=== PATIENT | female | born 1960 | race Caucasian/White ===

== ENCOUNTER 2017-01-04 10:45 | Outpatient (CLI) | payer MEDICARE, MEDICAID | END 2017-01-04 10:46 | disposition home or self-care (01) | DX: Z12.31 Encounter for screening mammogram for malignant neoplasm of breast (principal); R92.2 Inconclusive mammogram ==

== ENCOUNTER 2017-01-11 12:39 | Outpatient (CLI) | payer MEDICARE, MEDICAID | END 2017-01-11 12:40 | disposition home or self-care (01) | DX: N63 Unspecified lump in breast (principal) ==

== ENCOUNTER 2017-03-31 16:29 | Outpatient (CLI) | payer MEDICARE | END 2017-03-31 16:30 | disposition EMS.NT | LOC: EMS 16:29 | PROVIDERS: ATTEND Surgery | DX: S09.90XA Unspecified injury of head, initial encounter (principal); W18.39XA Other fall on same level, initial encounter; Y93.K1 Activity, walking an animal ==

== ENCOUNTER 2017-03-31 17:34 | Emergency (ER) | payer MEDICAID, MEDICARE ==
[2017-03-31] MEDS ORDERED: oxyCOD/ACETAMIN 5 MG/325 MG TABLET PO STA (21:28)
[2017-03-31] MEDS ORDERED: IBUPROFEN 800 MG TABLET PO STA (21:28)
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
[2017-03-31] MEDS ORDERED: IBUPROFEN 800 MG TABLET PO ONE (22:10)
[2017-03-31] MEDS ORDERED: oxyCOD/ACETAMIN 5 MG/325 MG TABLET PO ONE (22:10)
--- NOTE | 2017-03-31 22:21 | XRAY Preliminary Report ---
Exam: XR Chest 2 View PA/LAT IMPRESSION: No acute abnormalities identified. Moderate hiatal hernia. [facility] SITE ID: [id number]
--- NOTE | 2017-03-31 22:23 | XRAY Report ---
EXAM: CHEST RADIOGRAPHY EXAM DATE: 03/31/2017 10:07 PM. CLINICAL HISTORY: Fall. Left costal margin contusion. COMPARISON: None. TECHNIQUE: 2 views. FINDINGS: Lungs/Pleura: No focal opacities evident. No pleural effusion. No pneumothorax. Normal volumes. Mediastinum: Normal heart size. Moderate hiatal hernia. Other: No fractures identified. IMPRESSION: No acute abnormalities identified. Moderate hiatal hernia. [facility] Referring Provider Line: [phone] SITE ID: [id number]
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
--- NOTE | 2017-03-31 22:32 | CT Report ---
EXAM: CT HEAD EXAM DATE: 03/31/2017 10:10 PM. CLINICAL HISTORY: Left cephalohematoma COMPARISON: None. TECHNIQUE: Multiaxial CT images were obtained from the foramen magnum to the vertex. IV contrast: Non e. Reformats: Coronal. In accordance with CT protocol optimization, one or more of the following dose reduction techniques w ere utilized for this exam: automated exposure control, adjustment of mA and/or KV based on patient s ize, or use of iterative reconstructive technique. FINDINGS: Parenchyma: Encephalomalacia involves the left temporal pole. Extraaxial Spaces: Normal for age. No subdural or epidural collections identified. Ventricles: Prominent out of proportion to overlying sulci. Vasquez ratio is 0.42. Sinuses: Imaged paranasal sinuses, orbits, and mastoids show no significant abnormality. Bones: Left sided craniotomy. No fracture is identified. Other: Left frontal scalp hematoma IMPRESSION: Old injury left temporal pole. Pattern suggests remote trauma. Ventriculomegaly without an obstructing lesion demonstrated. Correlate with signs and symptoms of nor mal pressure hydrocephalus. Remote left convexity craniotomy. [facility] Referring Provider Line: [phone] SITE ID: [id number]
[2017-03-31] MEDS ORDERED: TETANUS/DIPHTHERIA/PERTUSSIS 0.5 ML SYRINGE IM ONE ×2 (23:31)
[2017-03-31 23:45] VITALS: BP 116/68
== END 2017-03-31 23:40 | disposition home or self-care (01) ==
LOC: ED 17:34
DX: S06.9X1A Unspecified intracranial injury with loss of consciousness of 30 minutes or less, initial encounter (principal); S00.03XA Contusion of scalp, initial encounter; S20.212A Contusion of left front wall of thorax, initial encounter; S50.812A Abrasion of left forearm, initial encounter; S50.811A Abrasion of right forearm, initial encounter; W01.198A Fall on same level from slipping, tripping and stumbling with subsequent striking against other object, initial encounter; Y93.K1 Activity, walking an animal; Z87.820 Personal history of traumatic brain injury; M19.90 Unspecified osteoarthritis, unspecified site
CPT/HCPCS: 70450; 71020; 90471; 90715; 99283; A9270

== ENCOUNTER 2017-10-31 18:54 | Outpatient (CLI) | payer MEDICAID, MEDICARE | END 2017-10-31 18:55 | disposition critical access hospital (66) | LOC: EMS 18:54 | PROVIDERS: ATTEND Surgery | DX: R10.9 Unspecified abdominal pain (principal); R11.2 Nausea with vomiting, unspecified | CPT/HCPCS: A0425; A0427 ==

== ENCOUNTER 2017-10-31 19:31 | Emergency (ER) | payer MEDICAID, MEDICARE ==
[2017-10-31 19:59] LABS: BASOPHILS # (AUTO) 0.1 10^3/uL (0.0-0.1); BASOPHILS % (AUTO) 0.7 %; EOSINOPHILS # (AUTO) 0.1 10^3/uL (0.0-0.7); EOSINOPHILS % (AUTO) 1.1 %; HGB - HEMOGLOBIN 13.9 g/dL (12.0-16.0); LYMPHOCYTES % (AUTO) 20.1 %; MEAN CORPUSCULAR HEMOGLOBIN 29.8 pg (27.0-31.0); MEAN CORPUSCULAR HGB CONC 32.4 g/dL (32.0-36.0); MEAN PLATELET VOLUME 7.1 fL (7.9-10.8); MONOCYTES # (AUTO) 0.4 10^3/uL (0.0-1.0); MONOCYTES % (AUTO) 4.3 %; NEUTROPHILS # (AUTO) 7.5 10^3/uL (1.5-6.6); NEUTROPHILS % (AUTO) 73.8 %; PLT - PLATELET COUNT 310 10^3/uL (130-450); RED BLOOD COUNT 4.67 10^6/uL (4.20-5.40); RED CELL DISTRIBUTION WIDTH 13.6 % (12.0-15.0); WHITE BLOOD COUNT 10.2 x10^3/uL (4.8-10.8)
[2017-10-31 20:18] LABS: ALBUMIN 4.8 g/dL (3.2-5.5); ALBUMIN/GLOBULIN RATIO 1.7 (1.0-2.2); BILIRUBIN,TOTAL 0.4 mg/dL (0.2-1.0); CALCIUM 9.3 mg/dL (8.5-10.3); CREATININE 0.9 mg/dL (0.4-1.0); TOTAL PROTEIN 7.6 g/dL (6.7-8.2)
--- NOTE | 2017-10-31 20:42 | ED Physician Documentation ---
PD HPI CHEST PAIN - Stated complaint Stated Complaint: CP, ABD PAIN, VOMITING - Chief complaint Chief Complaint: Cardiac - History obtained from History obtained from: Patient, EMS - History of Present Illness Timing - onset: Enter time (1800), Today Timing - onset during: Rest Timing - details: Abrupt onset, Now resolved Quality: Pressure, Tightness Location: Substernal Radiation: No: Jaw, Neck, Back, Abdominal, Left upper extremity, Right upper extremity Improved by: Rest Associated symptoms: Diaphoresis Similar symptoms before: Has not had sx before Recently seen: Not recently seen - Additional information Additional information: 57-year-old female with a history of traumatic brain injury has poor memory and is unable to assist with a history to any extent. She is able to describe that she had some pain in her chest anteriorly and this eventually resolved and she had some pain in her abdomen and now she is pain-free. Here in the emergency department she denies any specific symptoms. She states she thinks this happened sometime after dinner. She is expecting her sister to arrive here to provide more details of history. PD PAST MEDICAL HISTORY - Past Medical History Cardiovascular: None Respiratory: None Neuro: Head injury Endocrine/Autoimmune: None GI: Diverticulitis : None HEENT: None Psych: Depression, Anxiety Musculoskeletal: Osteoarthritis Derm: None - Past Surgical History Past Surgical History: Yes Neuro: Craniotomy HEENT: Tonsil/Adenoidectomy - Present Medications Home Medications: Ambulatory Orders Medication Instructions Recorded Confirmed Amitriptyline [Elavil] 25 mg PO QDAC 10/17/13 03/31/17 Multivit-Min/FA/Lycopene/Lut 1 each PO QDAC 10/17/13 03/31/17 [Centrum Silver Tablet] Ibuprofen 600 mg PO TID PRN #14 tablet 03/31/17 buPROPion [Wellbutrin Xl] 150 mg PO QDAC 03/31/17 03/31/17 oxyCODONE/ACET 5/325 [Percocet 5 1 each PO Q4-6H PRN #16 tablet 03/31/17 mg/325 mg] - Allergies Allergies/Adverse Reactions: Allergies Allergy/AdvReac Type Severity Reaction Status Date / Time phenytoin sodium * Allergy Severe fever Verified 10/31/17 19:37 [From Dilantin] phenytoin sodium extended * Allergy Severe fever Verified 10/31/17 19:37 [From Dilantin] - Social History Does the pt smoke?: No Smoking Status: Never smoker Does the pt drink ETOH?: Yes - Immunizations Immunizations are current?: No Immunizations: TDAP >10years/unknown - POLST Patient has POLST: No PD ED PE NORMAL - General General: No acute distress, Well developed/nourished - HEENT HEENT: Atraumatic, PERRL, EOMI, Ears normal, Other (dry mucous membranes) - Neck Neck: Supple, no meningeal sign, No bony TTP - Cardiac Cardiac: RRR, No murmur - Respiratory Respiratory: No respiratory distress, Other (rhonchi in the right base) - Abdomen Abdomen: Soft, Non tender - Back Back: No CVA TTP, No spinal TTP - Derm Derm: Normal color, Warm and dry, No rash - Extremities Extremities: No deformity, No edema - Neuro Neuro: flight director 2-12 intact, No motor deficit, No sensory deficit, Normal speech Eye Opening: Spontaneous Motor: Obeys Commands Verbal: Oriented GCS Score: 15 - Psych Psych: Normal mood, Normal affect Results - Vitals Vitals: Vital Signs - 24 hr 10/31/17 10/31/17 10/31/17 19:32 20:14 20:30 Temperature 36.1 C L Heart Rate 90 83 86 Respiratory 20 16 16 Rate Blood Pressure 127/91 H 119/90 H 123/88 H O2 Saturation 95 93 98 10/31/17 10/31/17 10/31/17 21:20 21:30 22:00 Temperature Heart Rate 79 80 80 Respiratory 16 16 Rate Blood Pressure 106/76 144/88 H 129/95 H O2 Saturation 98 99 10/31/17 10/31/17 22:30 23:43 Temperature Heart Rate 83 89 Respiratory 16 16 Rate Blood Pressure 134/93 H 134/98 H O2 Saturation 97 95 Oxygen O2 Source Room air - EKG (time done) 1938 Rate: Rate (enter#) (85) Rhythm: NSR Ischemia: Normal ST segments Compare to prior EKG: Old EKG unavailable Computer interpretation: Agree with computer - Labs Labs: Laboratory Tests 10/31/17 10/31/17 10/31/17 19:52 19:52 19:52 WBC 10.2 RBC 4.67 Hgb 13.9 Hct 42.9 MCV 92.0 MCH 29.8 MCHC 32.4 RDW 13.6 Plt Count 310 MPV 7.1 L Neut # 7.5 H Lymph # 2.0 [place] # 0.4 Eos # 0.1 Baso # 0.1 Absolute Nucleated RBC 0.00 Nucleated RBC % 0.0 Sodium 139 Potassium 4.0 Chloride 104 Carbon Dioxide 26 Anion Gap 9.0 BUN 19 Creatinine 0.9 Estimated GFR (MDRD) 64 L Glucose 155 H Calcium 9.3 Total Bilirubin 0.4 AST 20 ALT 24 Alkaline Phosphatase 73 Troponin I < 0.04 Total Protein 7.6 Albumin 4.8 Globulin 2.8 Albumin/Globulin Ratio 1.7 Lipase 23 - Rads (name of study) 2 view chest Radiology: Prelim report reviewed (Impression: Large hiatal hernia. No acute airspace process.), EMP read indepedently, See rad report Procedures - Bedside sono Bedside sono by EMP: With use of bedside ultrasound the gallbladder is imaged it is sonographically nontender and without obvious stone. PD MEDICAL DECISION MAKING - ED course Complexity details: reviewed old records, reviewed results, re-evaluated patient , considered differential, d/w patient, d/w family ED course: 57 -year-old female with prior traumatic brain injury is not able to give adequate history and the mother is contacted by telephone and gives a history of similar episodes previously over the years which are not as severe. She describes the episode is air in her esophagus. The patient does have a large hiatal hernia I suspect that she has had some reflux with the the hiatal hernia as this occurred after the reading some enchiladas. The patient is now asymptomatic and no other findings specifically on workup and she is discharged to home in a taxi. Departure - Departure Disposition: 01 Home, Self Care Clinical Impression: Hiatal hernia Condition: Stable Instructions: Hiatal Hernia Follow-Up: Nasir Springer MD [Provider Admit Priv/Credential] - Discharge Date/Time: 10/31/17 23:40
--- NOTE | 2017-10-31 21:43 | XRAY Preliminary Report ---
Exam: XR CHEST 2 VIEW X-RAY IMPRESSION: Large hiatal hernia. No acute airspace process. [facility] SITE ID: [id number]
--- NOTE | 2017-10-31 21:44 | XRAY Report ---
EXAM: CHEST RADIOGRAPHY EXAM DATE: 10/31/2017 09:04 PM. CLINICAL HISTORY: R lower lung rhonchi. COMPARISON: 03/31/2017 chest x-ray. TECHNIQUE: 2 views. FINDINGS: Lungs/Pleura: There is a large hiatal hernia with compressive atelectasis of the adjacent right lower lobe. The lungs are otherwise clear. No pleural effusion or pneumothorax. Mediastinum: Heart and mediastinal contours are unremarkable. Other: None. IMPRESSION: Large hiatal hernia. No acute airspace process. [facility] Referring Provider Line: [phone] SITE ID: [id number]
[2017-10-31 23:44] VITALS: BP 134/98
== END 2017-10-31 23:40 | disposition home or self-care (01) ==
LOC: EDBD → EDUNIT# → ED 19:31
DX: K44.9 Diaphragmatic hernia without obstruction or gangrene (principal); Z87.820 Personal history of traumatic brain injury
CPT/HCPCS: 36415; 71046; 80053; 83690; 84484; 85025; 93005; 99284

== ENCOUNTER 2018-01-03 11:30 | Outpatient (CLI) | payer MEDICARE ==
--- NOTE | 2018-01-05 06:42 | Mammography Report ---
DIGITAL SCREENING MAMMOGRAM: 01/03/2018 INDICATION: A 57-year-old nulliparous patient for screening. COMPARISON: 12/2016, 10/2015, 10/2014, 08/2013, 05/2011 TECHNIQUE: Routine CC and MLO projections were obtained of the breasts. FINDINGS: The breasts again demonstrate scattered fibroglandular densities bilaterally. Coarse and punctate, typically benign calcifications are present. No suspicious masses, clustered microcalcifications, or regions of architectural distortion are identified. IMPRESSION: BENIGN FINDINGS. RECOMMENDATION: Routine annual screening unless otherwise clinically indicated. BIRADS CATEGORY - 2 BENIGN FINDINGS. STANDARD QUALIFYING STATEMENTS: 1. This examination was reviewed with the aid of Computer-Aided Detection (CAD). 2. A negative or benign imaging report should not delay biopsy if clinically suspicious findings are present. Consider surgical consultation if warranted. More than 5% of cancers are not identified by imaging. 3. Dense breasts may obscure an underlying neoplasm. TD: 01/05/2018 06:41
== END 2018-01-03 11:31 | disposition home or self-care (01) ==
LOC: DI.S 11:30
PROVIDERS: ATTEND Internal Medicine
DX: Z12.31 Encounter for screening mammogram for malignant neoplasm of breast (principal)
CPT/HCPCS: 77067

== ENCOUNTER 2018-03-04 11:09 | Outpatient (CLI) | payer MEDICARE ==
--- NOTE | 2018-03-04 15:02 | Ultrasound Report ---
Procedure Date: 03/04/2018 Accession Number: [id number] / [id number] Procedure: US - Pelvic w/Transvaginal CPT Code: FULL RESULT: EXAM: Pelvic w/Transvaginal DATE: 03/04/2018 12:18 PM CLINICAL HISTORY: VAGINAL WALL PROLAPSE COMPARISON: None. TECHNIQUE: Real time scanning by the parts room assistant was saved static images reviewed. Transabdominal approach for global evaluation. Endovaginal scanning for detailed assessment of the uterus and ovaries. FINDINGS: Uterus: 6.1 x 2.3 x 2.9 cm. Anteverted position. Normal overall size and echotexture. Masses: None. Endometrium: 1.8 mm. Normal. Cervix: Cluster of echogenic foci in the lower uterine segment, question calcifications.. Right Ovary/Adnexa: 1.6 x 0.9 x 1.1 cm, volume 0.8 cc. Normal echotexture. Blood flow is present. No adnexal mass is seen. Left Ovary/Adnexa: 1.5 x 1 x 1 cm, volume 0.8 cc. Normal echotexture. Blood flow is present. No adnexal mass is seen. Free Fluid: None. Other: None. IMPRESSION: No significant abnormality pelvic ultrasound. [facility]
== END 2018-03-04 11:10 | disposition home or self-care (01) ==
LOC: DI 11:09
PROVIDERS: ATTEND Physician Assistant Medical
DX: N81.10 Cystocele, unspecified (principal)
CPT/HCPCS: 76830; 76856

== ENCOUNTER 2018-05-27 14:42 | Outpatient (CLI) | payer MEDICARE ==
[2018-05-27 15:04] LABS: BASOPHILS # (AUTO) 0.1 10^3/uL (0.0-0.1); BASOPHILS % (AUTO) 0.8 %; EOSINOPHILS # (AUTO) 0.3 10^3/uL (0.0-0.7); EOSINOPHILS % (AUTO) 3.7 %; HGB - HEMOGLOBIN 13.5 g/dL (12.0-16.0); LYMPHOCYTES # (AUTO) 1.7 10^3/uL (1.5-3.5); LYMPHOCYTES % (AUTO) 19.4 %; MEAN CORPUSCULAR HEMOGLOBIN 31.2 pg (27.0-31.0); MEAN CORPUSCULAR HGB CONC 33.7 g/dL (32.0-36.0); MEAN CORPUSCULAR VOLUME 92.6 fL (81.0-99.0); MONOCYTES # (AUTO) 0.6 10^3/uL (0.0-1.0); MONOCYTES % (AUTO) 7.5 %; NEUTROPHILS # (AUTO) 5.9 10^3/uL (1.5-6.6); NEUTROPHILS % (AUTO) 68.6 %; PLT - PLATELET COUNT 332 10^3/uL (130-450); RED BLOOD COUNT 4.34 10^6/uL (4.20-5.40); RED CELL DISTRIBUTION WIDTH 13.5 % (12.0-15.0); WHITE BLOOD COUNT 8.6 x10^3/uL (4.8-10.8)
[2018-05-27 15:16] LABS: BILIRUBIN,URINE NEGATIVE (NEGATIVE); GLUCOSE, URINE (UA) NEGATIVE (NEGATIVE); KETONES,URINE (UA) NEGATIVE (NEGATIVE); LEUKOCYTE ESTERASE, URINE MODERATE (NEGATIVE); NITRITE,URINE NEGATIVE (NEGATIVE); OCCULT BLOOD,URINE NEGATIVE (NEGATIVE); PROTEIN,URINE NEGATIVE (NEGATIVE); UROBILINOGEN,URINE 0.2 (NORMAL) E.U./dL (NORMAL)
[2018-05-27 15:17] LABS: ALBUMIN 4.1 g/dL (3.2-5.5); ALBUMIN/GLOBULIN RATIO 1.5 (1.0-2.2); BILIRUBIN,TOTAL 0.5 mg/dL (0.2-1.0); CALCIUM 9.4 mg/dL (8.5-10.3); TOTAL PROTEIN 6.9 g/dL (6.7-8.2)
[2018-05-27 15:20] LABS: CLARITY,URINE HAZY (CLEAR)
== END 2018-05-27 14:43 | disposition home or self-care (01) ==
LOC: LAB 14:42
PROVIDERS: ATTEND Obstetrics & Gynecology
DX: Z01.812 Encounter for preprocedural laboratory examination (principal); N81.6 Rectocele; N81.10 Cystocele, unspecified; N81.4 Uterovaginal prolapse, unspecified; Z79.899 Other long term (current) drug therapy
CPT/HCPCS: 36415; 80053; 81003; 85025; 86850; 86900; 86901

== ENCOUNTER 2018-05-29 10:16 | Inpatient (IN) | payer MEDICARE ==
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
--- NOTE | 2018-05-28 16:20 | PROVIDER PROGRESS NOTE ---
Subjective - Prog Note Date Prog Note Date: 05/28/18 Prog Note Time: 16:15 - Subjective Subjective: Patient had preoperative session today w the same day surgery nurse. Her mother could not produce any documentation that she was a designated guardian or had power of health care attorney. Patient had foot surgery in 2015 & a prior colonoscopy and I hope that the mother's documentation of power of health care attorney would be available in the records. Due to her cognitive defect, the patient could not articulate the type of surgery, purpose or risks to the nurse. Therefore, the problem of patient consent requires legal resolution. I have calls out to the hospital att orney and [place] chief of quality. Jesus Manuel Pickens MD, FACOG
--- NOTE | 2018-05-29 08:26 | ANESTHESIA ---
Pre-Anesthesia VS, & Labs - Diagnosis Rectocele, cystocele, uterine prolapse - Procedure Laparoscopic assisted vaginal hysterectomy and anterior/posterior repair Vital Signs: Vital Signs (72 hours) 05/29/18 10:26 Temperature 36.2 C L Respiratory 18 Rate Blood Pressure 112/75 O2 Saturation 100 Pulse 97 Height 5 ft 7 in Body Mass Index 26.6 - NPO >8 hours Last Fluid Intake: sip of water at 0700 - Is Patient ?: No - Lab Results Lab results reviewed: Yes Other Lab Results: Lab work from 05/27/18 WBC 8.6 Hgb 13.5 Hct 40 Plat 332 Na 141 K 4.0 Cl 107 CO2 27 BUN 16 Cr 1.0 Gluc 95 Home Medications and Allergies Home Medications: Ambulatory Orders Medication Instructions Recorded Confirmed Amitriptyline [Elavil] 25 mg PO QDAC 10/17/13 03/31/17 Multivit-Min/FA/Lycopene/Lut 1 each PO QDAC 10/17/13 03/31/17 [Centrum Silver Tablet] Ibuprofen 600 mg PO TID PRN #14 tablet 03/31/17 buPROPion [Wellbutrin Xl] 150 mg PO QDAC 03/31/17 03/31/17 Multivitamin [Multiple Vitamins] 1 each PO DAILY 05/29/18 05/29/18 Allergies/Adverse Reactions: Allergies Allergy/AdvReac Type Severity Reaction Status Date / Time phenytoin sodium * Allergy Severe fever Verified 10/31/17 19:37 [From Dilantin] phenytoin sodium extended * Allergy Severe fever Verified 10/31/17 19:37 [From Dilantin] Anes History & Medical History - Anesthetic History Anesthesia Complications: reports: No previous complications Family history of Anesthesia Complications: Denies Family history of Malignant Hyperthermia: Denies - Medical History Cardiovascular: reports: None Pulmonary: reports: None Gastrointestinal: reports: GERD (controlled with medication), Hiatal hernia, Diverticulitis, Other Urinary: reports: None, Frequency Neuro: reports: Head injury (during , subdural hematoma) Musculoskeletal: reports: Osteoarthritis Endocrine/Autoimmune: reports: None Blood Disorders: reports: None Skin: reports: None Smoking Status: Never smoker Psychosocial: reports: Alcohol (one beer at night) - Surgical History General: Colonoscopy Eyes Ears Nose Throat (EENT): Tonsil/Adenoidectomy Neurologic: Craniotomy Orthopedic: Other (Foot) Results - EKG Results EKG Comparison: Reviewed EKG Exam General: Alert, Oriented x3, Cooperative, No acute distress Dental: WNL Mouth Openin Fingerbreadth Neck Mobility: Normal Mallampati classification: III Thyromental Distance: 4-6 cm Respiratory: Lungs clear, Normal breath sounds, No respiratory distress, No accessory muscle use Cardiovascular: Regular rate, Normal S1, Normal S2, No murmurs Mental/Cognitive Status: Alert/Oriented X3 (Short term memory loss), Other Cognitive Status: Within normal limits, Traumatic brain injury Plan Anesthesia Type: General Consent for Procedure(s) Verified and Reviewed: Yes Code Status: Attempt Resuscitation ASA classification: 2-Mild systemic disease Is this case an emergency?: No
[~2018-05-29 10:16] MED LIST: LACTATED RINGERS 1,000 ML IV ONE; ceFAZolin 2 GM/50 ML 2 GM/50 ML BAG IV ONE
[2018-05-29] MEDS ORDERED: BUPIVACAINE 0.25%-EPI 1:200000 PF 30 ML VIAL ONE ×2 (11:17→13:20)
[2018-05-29] MEDS ORDERED: BUPIVACAINE 0.25%-EPI 1:200000 PF 30 ML VIAL SUBQ ONE ×2 (12:39)
[2018-05-29] MEDS ORDERED: NEOSTIGMINE 1 MG/1 ML 10 ML MDV IVP ONE (13:00)
[2018-05-29] MEDS ORDERED: FUROSEMIDE 40 MG/4 ML VIAL IVP ONE (13:00)
[2018-05-29] MEDS ORDERED: ACETAMINOPHEN 1,000 MG/100 ML 100 ML IV ONE (13:00)
[2018-05-29] MEDS ORDERED: PROPOFOL 200 MG/20 ML VIAL IVP ONE (13:00)
[2018-05-29] MEDS ORDERED: MIDAZOLAM 2 MG/2 ML VIAL IVP ONE (13:00)
[2018-05-29] MEDS ORDERED: LIDOCAINE-MPF 2% 5 ML VIAL IM ONE (13:00)
[2018-05-29] MEDS ORDERED: GLYCOPYRROLATE 1 MG/5 ML VIAL IVP ONE (13:00)
[2018-05-29] MEDS ORDERED: ONDANSETRON 4 MG/2 ML VIAL IVP ONE (13:00)
[2018-05-29] MEDS ORDERED: fentaNYL 100 MCG/2 ML VIAL IVP ONE (13:00)
[2018-05-29] MEDS ORDERED: DEXAMETHASONE 4 MG/ML VIAL IVP ONE (13:00)
[2018-05-29] MEDS ORDERED: WATER FOR INJECTION,STERILE 0 ML ONE (13:22)
[2018-05-29] MEDS ORDERED: METHYLENE BLUE 0.5% 50 MG/10 ML AMPULE ONE (13:33)
[2018-05-29] MEDS ORDERED: ESTROGENS, CONJUGATED CREAM 30 GM TUBE ONE (13:37)
[2018-05-29] MEDS ORDERED: ESTROGENS, CONJUGATED CREAM 30 GM TUBE VG ONE (13:39)
[2018-05-29] MEDS ORDERED: ONDANSETRON 4 MG/2 ML VIAL IVP PRN (15:22)
[2018-05-29] MEDS ORDERED: oxyCODONE 5 MG TABLET PO PRN (15:22)
[2018-05-29] MEDS ORDERED: ZOLPIDEM 5 MG TABLET PO PRN (15:22)
[2018-05-29] MEDS ORDERED: SODIUM CHLORIDE FLUSH 0.9% 10 ML SYRINGE IVP PRN (15:22)
[2018-05-29] MEDS ORDERED: HYDROmorphone 1 MG/ML CARPUJECT IVP PRN (15:22)
--- NOTE | 2018-05-29 15:39 | OPERATIVE REPORT ---
Operative Report - General Planned Procedure: LAVH, anterior and posterior repair, sacral spinous suspension Pre-Op Diagnosis: Third-degree cystocele with second-degree rectocele and uterine prolapse Procedure Performed: Laparoscopic-assisted vaginal hysterectomy with bilateral salpingectomy; Donato's culdoplasty; anterior and posterior colporrhaphy; sacral spinous vaginal suspension; Cystoscopy Post Op Diagnosis: Same as above await pathology report, Add small enterocele - Procedure Note Primary Surgeon: Jesus Manuel Pickens MD, FACOG Secondary Surgeon: Afshan Gamino DO, FACOG Anesthesia Provider: Pako Goldberg, certified nurse data processing equipment repairer Anesthesia Technique: General ET tube Pathology: Uterus and tubes IV Fluids (mL): 1,200 Estimated Blood Loss (mL): 70 Urine Output (mL): 150 Drain/Tube Type: Other (Tubbs) Complications: None - Other Other Information/Narrative: FINDINGS: Laparoscopy found normal right and left ovaries without excrescence or evident pathology. The uterus was small and hyper mobile. The tubes appeared to be normal. The ligamentous support of the uterus was hyper lax and there was a great deal of fatty degeneration of the fascia. The appendix appeared to be normal. There was a large rectocele could contained a underlying enterocele. Enterocele had incarcerated small intestine. The cystocele was grade 3+. Postoperative cystoscopy demonstrated no bladder incursions and to operable ureters TECHNIQUE: I met Ms. Overton and her family in the preop area and reviewed risks benefits and potential alternative therapies. She is aware of the risks of surgery inclusive of bleeding, transfusion, infection, damage to urinary tract or bowels. She understands that the colporrhaphy repair has no no guarantee of resiliency or cure and in addition it may cause pelvic pain or difficult voiding / defecation. All questions were answered. Preoperative informed consent paperwork was signed. Reference additional notes on consent Patient was brought the operating room placed supine position for administration of general anesthesia. She was uneventfully induced and intubated. She was moved to the lower dorsal lithotomy position using yellowfin mobile stirrups. She was prepped and draped in the customary sterile fashion including Tubbs catheter and HUMI uterine manipulator. Preoperative timeout briefing was done per protocol. 5 mm Visiport trocar was placed intra-abdominally without difficulty. Under direct visualization right and left lower quadrant 5 mm Visiport were placed. Abdomen was insufflated with CO2 gas under 12 mm of pressure. The abdomen was inspected and photographed. The tubes were identified and placed on tension. The mesosalpinx was desiccated and divided with LigaSure. The ureterine-ovarian ligaments were desiccated and divided. Broad ligament was dissected to skeletonize the uterine vessels. The uterine vessels were desiccated and divided. Bladder flap was developed with LigaSure. At this point we moved to the vaginal phase. Abdominal CO2 gas was vented. Patient was moved the high dorsal lithotomy position. Weighted speculum was placed in the vagina. Small aliquots of Marcaine with epinephrine were injected around the cervical barrel to create a liquid tourniquet. The cervical barrel was then circumscribed with Bovie pencil. Anterior and posterior compartment was sharply entered and retractors placed. Uterosacral ligaments were clamped transected and transfixed with 0 Vicryl. The uterosacral ligament was small enough that a single clamping maneuver was all that was necessary. The pelvic floor peritoneum was pursestringed 3 with 2-0 Vicryl. The uterosacral ligaments were then plicated into the anterior vaginal I am sorry posterior vaginal cuff. The ureteral sacral ligaments were then placed on tension and to other sutures of 2-0 Ethibond were used to plicate them together to form a firm culdoplasty. The lower uterosacral ligaments were then plicated together to reinforce the culdoplasty. The vaginal cuff was closed with a running suture of 0 chromic. Abdominal cavity was reassessed and lavaged with warm normal saline. There was no bleeding from the operative sites. At this time Dr. King scrubbed in to accomplish the appendectomy. Reference his notes. All CO2 gas was vented. All skin ports wounds were closed with interrupted subcuticular Monocryl sutures and dressed with Dermabond. Sponge needle and instrument count were confirmed correct Attention was turned to anterior colporrhaphy. [place] retractor was brought to the field and retraction stays placed at 10-4 and 8:00. Large cystocele was photographed. 5 cc of quarter percent Marcaine with epinephrine was injected down the midline of the cystocele and we waited for 3 minutes for hemostatic effect. The cystocele was then inscribed with scalpel along the midline from just above the cervix to the base of the UV junction on the urethra. 2 large flaps of vaginal mucosa were developed with sharp and blunt dissection. Then the harvested fascia was included in the horizontal sutures of 2-0 Vicryl used to reduce the cystocele. Vaginal mucosa was trimmed to size. Vaginal mucosa was closed with interrupted vertical mattress sutures of 2-0 Vicryl. Care was taken to match the landmarks particularly the hymenal ring. Attention was turned to Posterior colporrhaphy. 5 cc of quarter percent Marcaine with epinephrine was injected down the midline of the Rectocele and we waited for 3 minutes for hemostatic effect. The Rectocele was then inscribed with scalpel along the midline from just below the cervix to the Hymenal ring. 2 large flaps of vaginal mucosa were developed with sharp and blunt dissection. In the superior portion of the wound a 3 x 2 cm enterocele was discovered that contain small intestine. The enterocele was sharply opened and the intestine pushed up into the abdominal cavity. The enterocele defect was closed with 3 pursestrings sutures of 2-0 Vicryl. We continued on with rectocele repair. Then the harvested fascia was included in the horizontal sutures of 2-0 Vicryl used to reduce the Rectocele. At this point uterosacral colpopexy was accomplished using Luisa device. Business Proposal Rep tunneled on the right side of the vagina down to the sacral spine. This was identified as well as the sacral spinous ligament by palpation. Capio device was then guided down to the uterosacral ligament. Using a finger over the spine to safeguard the Capio device stitch going to lateral the was fired into the uterosacral ligament on 2 occasions. Next a portion of vaginal mucosa was harvested from the lower portion of the colporrhaphy repair because the vaginal mucosa was quite thin which was in turn sutured into the back side of the vaginal tube to buttress the elvira stitch area. Strands from the aforementioned uterosacral sutures were then firmly tied into the vaginal mucosa including the buttress tissue to create a elvira system. These stitches were then pulled and the vagina was elevated into the pelvis and inferior to the uterosacral ligament. There was no violin string stitches or intra-rectal stitches. Vaginal mucosa was trimmed to size. Vaginal mucosa was closed with interrupted vertical mattress sutures of 2-0 Vicryl. Care was taken to match the landmarks particularly the hymenal ring. Post pelvic reconstruction cystoscopy was accomplished. There is no cystitis. There is free flow of yellow urine from both the right and left ureter. There was no incursion into the bladder. The procedure was concluded. All sponge needle and instrument counts were confirmed as correct. The vaginal cavity was packed with estrogen enriched gauze packing. Tubbs was replaced. Patient was uneventfully awakened from general anesthesia and sent to the recovery room in good condition. Intraoperative medication Ancef 2 g IV piggyback Toradol 30 mg IV
[2018-05-29] MEDS: LACTATED RINGERS 1,000 ML IV SCH (15:51)
[2018-05-29] MEDS: SODIUM CHLORIDE FLUSH 0.9% 10 ML SYRINGE IVP SCH (16:14)
[2018-05-29] MEDS: IBUPROFEN 600 MG TABLET PO SCH (17:03)
[2018-05-29] MEDS: FAMOTIDINE 20 MG TABLET PO SCH (21:15)
[2018-05-29] MEDS: DOCUSATE SODIUM 250 MG CAPSULE PO SCH (21:15)
[2018-05-30] MEDS: IBUPROFEN 600 MG TABLET PO SCH ×4 (00:12→18:47)
[2018-05-30] MEDS: SODIUM CHLORIDE FLUSH 0.9% 10 ML SYRINGE IVP SCH ×3 (00:19→20:05)
[2018-05-30] MEDS: LACTATED RINGERS 1,000 ML IV SCH ×2 (01:59→12:00)
[2018-05-30 07:12] LABS: BASOPHILS # (AUTO) 0.1 10^3/uL (0.0-0.1); BASOPHILS % (AUTO) 0.4 %; EOSINOPHILS # (AUTO) 0.1 10^3/uL (0.0-0.7); EOSINOPHILS % (AUTO) 0.6 %; HGB - HEMOGLOBIN 11.3 g/dL (12.0-16.0); LYMPHOCYTES # (AUTO) 1.6 10^3/uL (1.5-3.5); LYMPHOCYTES % (AUTO) 12.2 %; MEAN CORPUSCULAR HEMOGLOBIN 31.3 pg (27.0-31.0); MEAN CORPUSCULAR HGB CONC 33.4 g/dL (32.0-36.0); MEAN CORPUSCULAR VOLUME 93.6 fL (81.0-99.0); MEAN PLATELET VOLUME 7.5 fL (7.9-10.8); MONOCYTES # (AUTO) 0.9 10^3/uL (0.0-1.0); NEUTROPHILS # (AUTO) 10.2 10^3/uL (1.5-6.6); NEUTROPHILS % (AUTO) 79.8 %; PLT - PLATELET COUNT 291 10^3/uL (130-450); RED BLOOD COUNT 3.62 10^6/uL (4.20-5.40); RED CELL DISTRIBUTION WIDTH 13.1 % (12.0-15.0); WHITE BLOOD COUNT 12.8 x10^3/uL (4.8-10.8)
[2018-05-30 07:31] LABS: ALBUMIN 3.3 g/dL (3.2-5.5); ALBUMIN/GLOBULIN RATIO 1.7 (1.0-2.2); BILIRUBIN,TOTAL 0.5 mg/dL (0.2-1.0); CALCIUM 8.2 mg/dL (8.5-10.3); CREATININE 0.7 mg/dL (0.4-1.0); TOTAL PROTEIN 5.3 g/dL (6.7-8.2)
[2018-05-30] MEDS: POLYETHYLENE GLYCOL 3350 17 GM PACKET PO SCH (08:57)
[2018-05-30] MEDS: FAMOTIDINE 20 MG TABLET PO SCH ×2 (08:58→22:03)
[2018-05-30] MEDS: DOCUSATE SODIUM 250 MG CAPSULE PO SCH ×2 (08:59→22:03)
--- NOTE | 2018-05-30 16:52 | PROVIDER PROGRESS NOTE ---
Objective - Vital Signs/Intake & Output Vital Signs: Vital Signs x48h Temp Pulse Resp BP Pulse Ox 05/30/18 15:38 98.6 F 72 21 116/57 L 100 Intake & Output: Intake & Output 05/27/18 05/28/18 05/29/18 05/30/18 23:59 23:59 23:59 23:59 Intake Total 2465 3315 Output Total 1345 2590 Balance 1120 725 - Lab Results Fish Bones: 05/30/18 06:00 05/30/18 06:00 Other Labs: Lab Results x24hrs 05/30/18 05/30/18 Range/Units 06:00 06:00 WBC 12.8 H (4.8-10.8) x10^3/uL RBC 3.62 L (4.20-5.40) 10^6/uL Hgb 11.3 L (12.0-16.0) g/dL Hct 33.9 L (37.0-47.0) % MCV 93.6 (81.0-99.0) fL MCH 31.3 H (27.0-31.0) pg MCHC 33.4 (32.0-36.0) g/dL RDW 13.1 (12.0-15.0) % Plt Count 291 (130-450) 10^3/uL MPV 7.5 L (7.9-10.8) fL Neut # (Auto) 10.2 H (1.5-6.6) 10^3/uL Lymph # (Auto) 1.6 (1.5-3.5) 10^3/uL Jerome # (Auto) 0.9 (0.0-1.0) 10^3/uL Eos # (Auto) 0.1 (0.0-0.7) 10^3/uL Baso # (Auto) 0.1 (0.0-0.1) 10^3/uL Absolute Nucleated RBC 0.01 x10^3/uL Nucleated RBC % 0.1 /100WBC Sodium 139 (135-145) mmol/L Potassium 3.7 (3.5-5.0) mmol/L Chloride 103 (101-111) mmol/L Carbon Dioxide 27 (21-32) mmol/L Anion Gap 9.0 (6-13) BUN 15 (6-20) mg/dL Creatinine 0.7 (0.4-1.0) mg/dL Estimated GFR (MDRD) 86 L (>89) Glucose 109 H (70-100) mg/dL Calcium 8.2 L (8.5-10.3) mg/dL Total Bilirubin 0.5 (0.2-1.0) mg/dL AST 25 (10-42) IU/L ALT 20 (10-60) IU/L Alkaline Phosphatase 61 (42-121) IU/L Total Protein 5.3 L (6.7-8.2) g/dL Albumin 3.3 (3.2-5.5) g/dL Globulin 2.0 L (2.1-4.2) g/dL Albumin/Globulin Ratio 1.7 (1.0-2.2) Assessment/Plan - Problem List (1) Pelvic organ prolapse quantification stage 3 cystocele Impression: S: feeling good. Not much pain at all. OOB without problems. Eating OK without n/v. Scant VB. No flatus. O: Alert, NAD Abd soft, appropriately tender, somewhat distended. Incisions c/d/i without erythema or induration Vaginal digital examination: no vaginal packing identified. 350cc instilled into bladder via johnson which was then removed. Able to void but PVR 130cc. Next voided volume was 100cc with PVR of 140cc. Next voided volume was 100cc with 280cc PVR. A/P 58yo POD #1 s/p LAVH, bilat salpingectomy, A&P repair, sacrospinous lig fixation, and cystoscopy. Doing very well except for some urinary retention which is common/expected following POP surgery. Will work on voids, pt will be I/O catheterized now due to elevated PVR. anticipate discharge home tomorrow. Pts op note related vaginal packing being placed. I did not feel any on exam. I called Dr. Gao who was in the OR and who did NOT observe vaginal packing being placed. Pt and family notified that I don't think that any packing is present but to notify us PRN foul odor or fevers. (2) Pelvic organ prolapse quantification stage 3 rectocele Impression: see above (3) Urinary retention with incomplete bladder emptying Impression: see above
[2018-05-31] MEDS: LACTATED RINGERS 1,000 ML IV SCH ×2 (01:48→12:56)
[2018-05-31] MEDS: SODIUM CHLORIDE FLUSH 0.9% 10 ML SYRINGE IVP SCH ×2 (02:06→12:57)
[2018-05-31] MEDS: IBUPROFEN 600 MG TABLET PO SCH ×3 (02:06→12:57)
[2018-05-31 08:36] VITALS: BP 124/77
[2018-05-31] MEDS: FAMOTIDINE 20 MG TABLET PO SCH (08:44)
[2018-05-31] MEDS: DOCUSATE SODIUM 250 MG CAPSULE PO SCH (08:44)
--- NOTE | 2018-05-31 11:48 | Discharge Plan ---
Discharge Plan Disposition: 01 Home, Self Care Condition: Good Prescriptions: Docusate Sodium 250Mg Capsule [Colace 250Mg Capsule] 250 mg PO BID PRN #60 capsule PRN Reason: to soften stool Ibuprofen 600 mg PO Q6H PRN #30 tablet PRN Reason: Pain Nitrofurantoin Monohyd/M-Cryst [Macrobid 100 mg Capsule] 100 mg PO BID #14 capsule Oxycodone HCl 5 mg PO Q4H PRN #10 tablet PRN Reason: Severe Pain Diet: Regular Activity Restrictions: See written instructions Shower Restrictions: No Driving Restrictions: Yes (none while on oxycodone) Additional Instructions or Follow Up instructions: See Dr. Terrell's postoperative handout No Smoking: If you smoke, Please STOP! Call for help. Follow-up with: Anika Terrell MD [Provider Admit Priv/Credential] - 06/03/18
[2018-05-31] MEDS: POLYETHYLENE GLYCOL 3350 17 GM PACKET PO SCH (12:57)
--- NOTE | 2018-05-31 15:48 | DISCHARGE SUMMARY ---
Physician: Anika Terrell MD DATE OF ADMISSION: 05/31/2018 DATE OF DISCHARGE: ADMISSION DIAGNOSES 1. Third-degree cystocele. 2. Second-degree rectocele. 3. Uterine prolapse. DISCHARGE DIAGNOSIS: Status post pelvic organ prolapse repair. Urinary retention following CONTACT LENS MOLDER surgery. OPERATIONS AND PROCEDURES 1. Laparoscopic-assisted vaginal hysterectomy. 2. Bilateral salpingectomy. 3. Donato's culdoplasty. 4. Anterior and posterior colporrhaphy. 5. Sacrospinous vaginal suspension. 6. Cystoscopy. HOSPITAL COURSE: The patient was admitted for a planned pelvic organ prolapse procedure that was uncomplicated. By postoperative day 1, she was eating and ambulating well. She was passing flatus. Her pain was almost none. She was wanting to go home. She had scant vaginal bleeding. She needed to stay another day, due to routine urinary retention, seen postoperatively in prolapse patients. For the next 24 hours, she underwent voiding trials. Ultimately, she required Tubbs catheterization at discharge, due to chronically elevated postvoid residuals. She was able to void, but usually voided volume was less than postvoid residual, and postvoid residuals were running in the 100s. DISCHARGE EXAMINATION: The patient was afebrile with normal vital signs. She was alert and pleasant, in no apparent distress. Abdomen soft, nontender, nondistended. Incision is clean, dry, and intact without erythema or induration. DISCHARGE DISPOSITION: Home. CONDITION: Good. INSTRUCTIONS: Please see Dr. Terrell's detailed written postop instructions, which are routine for prolapse. DISCHARGE MEDICATIONS: 1. Resume home medications. 2. Ibuprofen p.r.n. pain. 3. Oxycodone p.r.n. severe pain. 4. Colace to soften stool. 5. Macrobid 100 mg p.o. b.i.d. while the catheter is in place. FOLLOWUP: In [address] Terrell for voiding trials and catheter removal. Patient received catheter training prior to discharge. OUTSTANDING LABORATORIES: Surgical pathology. TD: 05/31/2018 13:25 MTDD
== END 2018-05-31 15:35 | disposition home or self-care (01) | DRG 761 ==
LOC: SDS 10:16 → ICU 15:22 → OBSVTOIN 05-31 09:05
PROVIDERS: ADMIT Obstetrics & Gynecology; ATTEND Obstetrics & Gynecology
PROC: 0UQF0ZZ Repair Cul-de-sac, Open Approach (ICD-10-PCS; 2018-05-29)
PROC: 0USG7ZZ Reposition Vagina, Via Natural or Artificial Opening (ICD-10-PCS; 2018-05-29)
PROC: 0TJB8ZZ Inspection of Bladder, Via Natural or Artificial Opening Endoscopic (ICD-10-PCS; 2018-05-29)
PROC: 0JQC0ZZ Repair Pelvic Region Subcutaneous Tissue and Fascia, Open Approach (ICD-10-PCS; 2018-05-29)
PROC: 0UT9FZZ Resection of Uterus, Via Natural or Artificial Opening With Percutaneous Endoscopic Assistance (ICD-10-PCS; principal; 2018-05-29 11:30)
PROC: 0UT7FZZ Resection of Bilateral Fallopian Tubes, Via Natural or Artificial Opening With Percutaneous Endoscopic Assistance (ICD-10-PCS; 2018-05-29 11:30)
DX: N81.3 Complete uterovaginal prolapse (principal); R33.8 Other retention of urine; R41.3 Other amnesia; S06.5X9S Traumatic subdural hemorrhage with loss of consciousness of unspecified duration, sequela; K21.9 Gastro-esophageal reflux disease without esophagitis; Z79.899 Other long term (current) drug therapy
CPT/HCPCS: 36415; 51701; 80053; 85025; 87150; 88307

== ENCOUNTER 2019-01-10 15:34 | Outpatient (CLI) | payer MEDICARE ==
--- NOTE | 2019-01-13 15:01 | Mammography Report ---
Reason: SCREENING MAMMO Procedure Date: 01/10/2019 Accession Number: [id number] / [id number] Procedure: JEREMY - Screening Mammo w/Dane CPT Code: FULL RESULT: EXAM: Screening Mammo w/Dane DATE: 01/10/2019 4:29 PM CLINICAL HISTORY: Nulliparous patient for routine screening TECHNIQUE: (B) - Bilateral CC and MLO views were obtained. COMPARISON: 01/03/2018, 01/11/2017, 11/03/2015, 11/05/2014. PARENCHYMAL PATTERN: (A) - The breasts demonstrate scattered fibroglandular densities bilaterally. FINDINGS: There is been no significant interval change. There are no suspicious masses, calcifications, or areas of distortion. IMPRESSION: Negative examination. BI-RADS category 1. RECOMMENDATION: (ANNUAL) - Recommend routine annual screening mammography. BI-RADS CATEGORY: (1) - Negative. STANDARD QUALIFYING STATEMENTS: 1. This examination was not reviewed with the aid of Computer-Aided Detection (CAD). 2. A negative or benign imaging report should not preclude biopsy if clinically suspicious findings are present. 3. Dense breasts may obscure an underlying neoplasm. 4. This examination was reviewed with the aid of 3D breast imaging (tomosynthesis).
== END 2019-01-10 15:35 | disposition home or self-care (01) ==
LOC: DI 15:34
DX: Z12.31 Encounter for screening mammogram for malignant neoplasm of breast (principal)
CPT/HCPCS: 77063; 77067

== ENCOUNTER 2019-04-22 17:52 | Outpatient (CLI) | payer MEDICARE | END 2019-04-22 17:53 | disposition EMS.NT | LOC: EMS 17:52 | PROVIDERS: ATTEND Surgery | DX: R10.9 Unspecified abdominal pain (principal); R11.2 Nausea with vomiting, unspecified ==

== ENCOUNTER 2019-08-27 11:07 | Outpatient (CLI) | payer MEDICARE ==
[2019-08-27 19:01] LABS: BASOPHILS # (AUTO) 0.1 10^3/uL (0.0-0.1); BASOPHILS % (AUTO) 0.7 %; EOSINOPHILS % (AUTO) 0.1 %; HGB - HEMOGLOBIN 13.8 g/dL (12.0-16.0); LYMPHOCYTES # (AUTO) 1.9 10^3/uL (1.5-3.5); LYMPHOCYTES % (AUTO) 27.7 %; MEAN CORPUSCULAR HEMOGLOBIN 30.3 pg (27.0-31.0); MEAN CORPUSCULAR HGB CONC 31.2 g/dL (32.0-36.0); MEAN CORPUSCULAR VOLUME 97.4 fL (81.0-99.0); MEAN PLATELET VOLUME 11.2 fL (7.9-10.8); MONOCYTES # (AUTO) 0.5 10^3/uL (0.0-1.0); MONOCYTES % (AUTO) 6.7 %; NEUTROPHILS # (AUTO) 4.5 10^3/uL (1.5-6.6); NEUTROPHILS % (AUTO) 64.1 %; PLT - PLATELET COUNT 271 10^3/uL (130-450); RED BLOOD COUNT 4.55 10^6/uL (4.20-5.40); RED CELL DISTRIBUTION WIDTH 13.2 % (12.0-15.0)
[2019-08-27 19:04] LABS: ALBUMIN 4.1 g/dL (3.2-5.5); ALBUMIN/GLOBULIN RATIO 1.6 (1.0-2.2); BILIRUBIN,TOTAL 1.6 mg/dL (0.2-1.0); TOTAL PROTEIN 6.7 g/dL (6.7-8.2)
== END 2019-08-27 11:08 | disposition home or self-care (01) ==
LOC: LAB.S 11:07
PROVIDERS: ATTEND Physician Assistant Medical
DX: Z51.81 Encounter for therapeutic drug level monitoring (principal); Z79.899 Other long term (current) drug therapy
CPT/HCPCS: 36415; 80053; 85025

== ENCOUNTER 2020-04-21 13:07 | Outpatient (CLI) | payer MEDICARE ==
--- NOTE | 2020-04-22 09:24 | Mammography Report ---
BILATERAL DIGITAL SCREENING MAMMOGRAM 3D/2D: 04/21/2020 CLINICAL: Routine screening. Family history of breast cancer. Comparison is made to exams dated: 01/10/2019 mammogram, 01/03/2018 mammogram, 01/11/2017 mammogram, mammogram, 11/03/2015 mammogram, and 11/05/2014 mammogram - [facility]. The tissue of both breasts is predominantly fatty. No significant masses, calcifications, or other findings are seen in either breast. There has been no significant interval change. IMPRESSION: NEGATIVE There is no mammographic evidence of malignancy. A 1 year screening mammogram is recommended. This exam was interpreted at Station ID: [id number]. NOTE: For mammograms, a report in lay terms will be sent to the patient. Approximately 15% of breast malignancies will not be visualized mammographically. In the management of a palpable breast mass, a negative mammogram must not discourage biopsy of a clinically suspicious lesion. Electronically Signed By: Elliott tripp/aixa:04/21/2020 15:54:48 ACR BI-RADS Category 1: Negative 3341F PARENCHYMAL PATTERN: (F) - The breast(s) demonstrate(s) diffuse fatty replacement. BI-RADS CATEGORY: (1) - 1 RECOMMENDATION: (ANNUAL) - Recommend routine annual screening mammography. [id number] 1 year screening LATERALITY: (B)
== END 2020-04-21 13:08 | disposition home or self-care (01) ==
LOC: DI 13:07
DX: Z12.31 Encounter for screening mammogram for malignant neoplasm of breast (principal); Z80.3 Family history of malignant neoplasm of breast
CPT/HCPCS: 77063; 77067

== ENCOUNTER 2020-08-30 11:11 | Outpatient (CLI) | payer MEDICARE ==
--- NOTE | 2020-08-30 16:58 | XRAY Report ---
PROCEDURE: Hips 2V BILAT INDICATIONS: BILATERAL HIP PAIN TECHNIQUE: 3 views of the hip were acquired. COMPARISON: None FINDINGS: Bones: No fractures or dislocations. Mild right worse than left bilateral hip joint osteoarthritis i s seen. No suspicious bony lesions. The visualized pelvic ring appears intact. Soft tissues: No suspicious soft tissue calcifications or masses. IMPRESSION: Mild right worse than left bilateral hip joint osteoarthritis. No fracture or dislocation. No evidenc e of avascular necrosis. Reviewed by: Stepan Haney MD on 08/30/2020 4:56 PM PST Approved by: Stepan Haney MD on 08/30/2020 4:56 PM PST Station ID: [id number]
== END 2020-08-30 23:59 | disposition home or self-care (01) ==
LOC: DI.N 11:11
PROVIDERS: ATTEND Physician Assistant
DX: M16.0 Bilateral primary osteoarthritis of hip (principal)
CPT/HCPCS: 73521

== ENCOUNTER 2021-01-18 15:43 | Outpatient (CLI) | payer MEDICARE ==
--- NOTE | 2021-01-18 16:03 | XRAY Report ---
PROCEDURE: Lumbar Spine 2 View INDICATIONS: LOW BACK PAIN TECHNIQUE: 3 views of the lumbar spine were acquired. COMPARISON: None. FINDINGS: Bones: 5 [id number] vertebrae are present. Mild multilevel endplate osteophytes and disc space narrowing. Facet hypertrophy throughout the mid and lower lumbar spine. There is normal bony alignmen t. No vertebral body compression fractures. No suspicious bony lesions. Soft tissues: Overlying bowel gas pattern is normal. No suspicious soft tissue calcifications. IMPRESSION: Multilevel degenerative disc and facet disease. No acute fracture. No osseous lesion. If symptoms and/or clinical suspicion for pathology continue, further assessment with repeat plain film s, or advanced imaging (e.g., CT, MRI, or bone scan) is recommended for further assessment. Reviewed by: Vinod Bedolla MD on 01/18/2021 4:02 PM PDT Approved by: Vinod Bedolla MD on 01/18/2021 4:02 PM PDT Station ID: [id number]
== END 2021-01-18 15:44 | disposition home or self-care (01) ==
LOC: DI.S 15:43
PROVIDERS: ATTEND Registered Nurse
DX: M51.37 Other intervertebral disc degeneration, lumbosacral region (principal)

== ENCOUNTER 2021-04-19 14:08 | Outpatient (CLI) | payer MEDICARE ==
--- NOTE | 2021-04-20 15:25 | Mammography Report ---
BILATERAL DIGITAL SCREENING MAMMOGRAM 3D/2D WITH EXAGGERATED CC: 04/19/2021 CLINICAL: Family history of breast cancer. Comparison is made to exams dated: 04/21/2020 mammogram, 01/10/2019 mammogram, and 01/03/2018 mammogram - [facility]. There are scattered fibroglandular elements in both breasts. No significant masses, calcifications, or other findings are seen in either breast. There has been no significant interval change. IMPRESSION: NEGATIVE There is no mammographic evidence of malignancy. A 1 year screening mammogram is recommended. This exam was interpreted at Station ID: [id number]. NOTE: For mammograms, a report in lay terms will be sent to the patient. Approximately 15% of breast malignancies will not be visualized mammographically. In the management of a palpable breast mass, a negative mammogram must not discourage biopsy of a clinically suspicious lesion. Electronically Signed By: Elliott Escobar M.D. ar/penrad:04/19/2021 15:54:56 ACR BI-RADS Category 1: Negative 3341F PARENCHYMAL PATTERN: (A) - The breast(s) demonstrate(s) scattered fibroglandular densities. BI-RADS CATEGORY: (1) - 1 RECOMMENDATION: (ANNUAL) - Recommend routine annual screening mammography. [id number] 1 year screening LATERALITY: (B)
== END 2021-04-19 14:09 | disposition home or self-care (01) ==
LOC: DI.S 14:08
PROVIDERS: ATTEND Registered Nurse
DX: Z12.31 Encounter for screening mammogram for malignant neoplasm of breast (principal); Z80.3 Family history of malignant neoplasm of breast

== ENCOUNTER 2022-01-19 14:37 | Outpatient (CLI) | payer MEDICARE ==
[2022-01-19 19:59] LABS: BASOPHILS # (AUTO) 0.1 10^3/uL (0.0-0.1); BASOPHILS % (AUTO) 0.5 %; HCT - HEMATOCRIT 41.9 % (37.0-47.0); HGB - HEMOGLOBIN 13.4 g/dL (12.0-16.0); LYMPHOCYTES # (AUTO) 2.1 10^3/uL (1.5-3.5); LYMPHOCYTES % (AUTO) 22.3 %; MEAN CORPUSCULAR HEMOGLOBIN 30.6 pg (27.0-31.0); MEAN CORPUSCULAR VOLUME 95.7 fL (81.0-99.0); MEAN PLATELET VOLUME 9.7 fL (7.9-10.8); MONOCYTES # (AUTO) 0.6 10^3/uL (0.0-1.0); MONOCYTES % (AUTO) 6.2 %; NEUTROPHILS # (AUTO) 6.6 10^3/uL (1.5-6.6); NEUTROPHILS % (AUTO) 70.7 %; PLT - PLATELET COUNT 374 10^3/uL (130-450); RED BLOOD COUNT 4.38 10^6/uL (4.20-5.40); RED CELL DISTRIBUTION WIDTH 13.1 % (12.0-15.0); WHITE BLOOD COUNT 9.4 x10^3/uL (4.8-10.8)
[2022-01-19 20:39] LABS: ALBUMIN 3.9 g/dL (3.2-5.5); ALBUMIN/GLOBULIN RATIO 1.6 (1.0-2.2); ALKALINE PHOSPHATASE 72 IU/L (42-121); ALT ALANINE AMINOTRANSFERASE 19 IU/L (10-60); AST ASPARTATE AMINOTRANSFERASE 18 IU/L (10-42); BILIRUBIN,TOTAL 0.4 mg/dL (0.2-1.0); BUN - BLOOD UREA NITROGEN 22 mg/dL (6-20); CALCIUM 9.9 mg/dL (8.5-10.3); CARBON DIOXIDE - CO2 29 mmol/L (21-32); CHLORIDE 104 mmol/L (101-111); CHOLESTEROL 272 mg/dL; CREATININE 1.1 mg/dL (0.4-1.0); GFR - MDRD 50 (>89); GLUCOSE 88 mg/dL (70-100); HDL CHOLESTEROL 54 mg/dL; LDL CHOLESTEROL,CALCULATED 147 mg/dL; LDL/HDL RATIO 2.7 (<4.4); POTASSIUM 4.1 mmol/L (3.5-5.0); SODIUM 142 mmol/L (135-145); TOTAL PROTEIN 6.4 g/dL (6.7-8.2); TRIGLYCERIDES 357 mg/dL; VLDL CHOLESTEROL 71 mg/dL
[2022-01-19 20:52] LABS: THYROID STIMULATING HORMONE 3.28 uIU/mL (0.34-5.60)
== END 2022-01-19 14:38 | disposition home or self-care (01) ==
LOC: LAB.S 14:37
PROVIDERS: ATTEND Registered Nurse
DX: F41.9 Anxiety disorder, unspecified (principal); Z13.220 Encounter for screening for lipoid disorders; G47.9 Sleep disorder, unspecified; Z51.81 Encounter for therapeutic drug level monitoring; F32.A Depression, unspecified; Z79.899 Other long term (current) drug therapy
CPT/HCPCS: 36415; 80053; 80061; 83721; 84443; 85025

== ENCOUNTER 2022-03-17 14:10 | Outpatient (CLI) | payer MEDICARE ==
--- NOTE | 2022-03-17 15:08 | DEXA Report ---
PROCEDURE: Dexa Spine and/or Hip INDICATIONS: OSTEOPOROSIS TECHNIQUE: Dual energy x-ray absorptiometry (DXA) was performed on a Endologix System. Regions measur ed are the AP Spine, femoral neck, and if needed forearm. COMPARISON: None. FINDINGS: Lumbar Spine: Bone Mineral Density 1.254 g/cm/cm,T score 0.6, normal Left Hip: Bone Mineral Density 1.058 g/cm/cm,T score 0.4, normal Left Femoral Neck: Bone Mineral Density 0.950 g/cm/cm, T score -0.6, normal (T score greater or equal to -1.0: NORMAL) (T score from -1.1 to -2.4: OSTEOPENIA) (T score less than or equal to -2.5 to: OSTEOPOROSIS) Impression: 1. Normal bone mineral density. 2. No elevated fracture risk. Patients with diagnosis of osteoporosis or osteopenia should have regular bone mineral density assess ment. For those eligible for Medicare, routine testing is allowed once every 2 years. Testing frequ ency can be increased for patients who have rapidly progressing disease or for those who are receivin g medical therapy to restore bone mass. Reviewed by: Shakila Castaneda MD on 03/17/2022 3:07 PM PDT Approved by: Shakila Castaneda MD on 03/17/2022 3:07 PM PDT Station ID: [id number]
== END 2022-03-17 14:11 | disposition home or self-care (01) ==
LOC: DI 14:10
PROVIDERS: ATTEND Registered Nurse
DX: M81.0 Age-related osteoporosis without current pathological fracture (principal)

== ENCOUNTER 2023-02-13 10:30 | Outpatient (CLI) | payer MEDICARE ==
[2023-02-13 14:11] LABS: BASOPHILS # (AUTO) 0.1 10^3/uL (0.0-0.1); BASOPHILS % (AUTO) 0.5 %; EOSINOPHILS # (AUTO) 0.2 10^3/uL (0.0-0.7); EOSINOPHILS % (AUTO) 2.2 %; HCT - HEMATOCRIT 42.6 % (37.0-47.0); HGB - HEMOGLOBIN 13.6 g/dL (12.0-16.0); LYMPHOCYTES # (AUTO) 1.9 10^3/uL (1.5-3.5); LYMPHOCYTES % (AUTO) 20.6 %; MEAN CORPUSCULAR HEMOGLOBIN 30.6 pg (27.0-31.0); MEAN CORPUSCULAR HGB CONC 31.9 g/dL (32.0-36.0); MEAN CORPUSCULAR VOLUME 95.9 fL (81.0-99.0); MEAN PLATELET VOLUME 9.6 fL (7.9-10.8); MONOCYTES # (AUTO) 0.8 10^3/uL (0.0-1.0); NEUTROPHILS # (AUTO) 6.4 10^3/uL (1.5-6.6); NEUTROPHILS % (AUTO) 68.4 %; PLT - PLATELET COUNT 362 10^3/uL (130-450); RED BLOOD COUNT 4.44 10^6/uL (4.20-5.40); RED CELL DISTRIBUTION WIDTH 13.2 % (12.0-15.0); WHITE BLOOD COUNT 9.4 x10^3/uL (4.8-10.8)
[2023-02-13 15:04] LABS: THYROID STIMULATING HORMONE 3.01 uIU/mL (0.34-5.60)
[2023-02-13 15:11] LABS: ALBUMIN 4.1 g/dL (3.2-5.5); ALBUMIN/GLOBULIN RATIO 1.4 (1.0-2.2); ALKALINE PHOSPHATASE 87 IU/L (42-121); ALT ALANINE AMINOTRANSFERASE 21 IU/L (10-60); AST ASPARTATE AMINOTRANSFERASE 18 IU/L (10-42); BILIRUBIN,TOTAL 0.5 mg/dL (0.2-1.0); BUN - BLOOD UREA NITROGEN 24 mg/dL (6-20); CALCIUM 9.4 mg/dL (8.5-10.3); CARBON DIOXIDE - CO2 30 mmol/L (21-32); CHLORIDE 107 mmol/L (101-111); CHOL/HDL RATIO 5.5 (<4.4); CHOLESTEROL 296 mg/dL; CREATININE 1.2 mg/dL (0.4-1.0); GFR - MDRD 45 (>89); GLUCOSE 78 mg/dL (70-100); HDL CHOLESTEROL 54 mg/dL; POTASSIUM 4.5 mmol/L (3.5-5.0); SODIUM 144 mmol/L (135-145); TRIGLYCERIDES 429 mg/dL
[2023-02-13 15:35] LABS: LDL CHOLESTEROL,DIRECT 191 mg/dL; LDLD/HDL RATIO 3.5 (<4.4)
== END 2023-02-13 10:31 | disposition home or self-care (01) ==
LOC: LAB.S 10:30
PROVIDERS: ATTEND Registered Nurse
DX: Z79.899 Other long term (current) drug therapy (principal); Z13.220 Encounter for screening for lipoid disorders; Z13.0 Encounter for screening for diseases of the blood and blood-forming organs and certain disorders involving the immune mechanism; Z13.29 Encounter for screening for other suspected endocrine disorder
CPT/HCPCS: 36415; 80053; 80061; 83721; 84443; 85025

== ENCOUNTER 2023-05-16 15:01 | Outpatient (CLI) | payer MEDICARE ==
[2023-05-16 20:06] LABS: ALBUMIN 4.1 g/dL (3.2-5.5); ALKALINE PHOSPHATASE 82 IU/L (42-121); ALT ALANINE AMINOTRANSFERASE 16 IU/L (10-60); AST ASPARTATE AMINOTRANSFERASE 15 IU/L (10-42); BILIRUBIN,DIRECT < 0.10 mg/dL (0.03-0.18); BILIRUBIN,TOTAL 0.3 mg/dL (0.2-1.0); BUN - BLOOD UREA NITROGEN 26 mg/dL (6-20); CREATININE 1.3 mg/dL (0.6-1.3); GFR - MDRD 41 (>89); TOTAL PROTEIN 6.6 g/dL (6.4-8.9)
--- NOTE | 2023-05-18 16:30 | Mammography Report ---
BILATERAL DIGITAL SCREENING MAMMOGRAM 3D/2D: 05/16/2023 CLINICAL: Routine screening. Family history of breast cancer. Comparison is made to exams dated: 05/02/2022 mammogram, 04/24/2022 mammogram, and 04/19/2021 mammogram - [facility]. There are scattered areas of fibroglandular density in both breasts (category b / 25%-50% glandular t issue). No significant masses, calcifications, or other findings are seen in either breast. There has been no significant interval change. IMPRESSION: NEGATIVE There is no mammographic evidence of malignancy. A 1 year screening mammogram is recommended. Based on the Tyrer Cuzick model (a risk assessment model) the patients lifetime risk is 9.1% and her 10 year risk is 4.2%. According to the ACR, ACS, and NCCN guidelines, an annual breast MRI exam fritz g with mammogram is recommended if the patients lifetime risk is 20% or greater. This exam was interpreted at Station ID: [id number]. NOTE: For mammograms, a report in lay terms will be sent to the patient. Approximately 15% of breast malignancies will not be visualized mammographically. In the management of a palpable breast mass, a negative mammogram must not discourage biopsy of a clinically suspicious lesion. Electronically Signed By: Nae johnston/aixa:05/17/2023 17:16:36 letter sent: No_Letter ACR BI-RADS Category 1: Negative 3341F PARENCHYMAL PATTERN: (A) - The breast(s) demonstrate(s) scattered fibroglandular densities. BI-RADS CATEGORY: (1) - 1 Mammogram [id number] 1 year screening LATERALITY: (B)
== END 2023-05-16 15:02 | disposition home or self-care (01) ==
LOC: DI.S 15:01
DX: Z12.31 Encounter for screening mammogram for malignant neoplasm of breast (principal); Z80.3 Family history of malignant neoplasm of breast; B35.1 Tinea unguium
CPT/HCPCS: 36415; 80076; 82565; 84520

== ENCOUNTER 2023-07-05 14:10 | Outpatient (CLI) | payer MEDICARE ==
[2023-07-05 20:12] LABS: ALBUMIN 4.3 g/dL (3.2-5.5); ALKALINE PHOSPHATASE 83 IU/L (42-121); ALT ALANINE AMINOTRANSFERASE 20 IU/L (10-60); AST ASPARTATE AMINOTRANSFERASE 18 IU/L (10-42); BILIRUBIN,DIRECT < 0.10 mg/dL (0.03-0.18); BILIRUBIN,TOTAL 0.3 mg/dL (0.2-1.0); BUN - BLOOD UREA NITROGEN 24 mg/dL (6-20); CREATININE 1.3 mg/dL (0.6-1.3); GFR - MDRD 41 (>89); TOTAL PROTEIN 6.5 g/dL (6.4-8.9)
== END 2023-07-05 14:11 | disposition home or self-care (01) ==
LOC: LAB.S 14:10
PROVIDERS: ATTEND Physician Assistant Medical
DX: B35.1 Tinea unguium (principal)
CPT/HCPCS: 36415; 80076; 82565; 84520

== ENCOUNTER 2023-08-02 13:37 | Outpatient (CLI) | payer MEDICARE ==
[2023-08-02 20:32] LABS: ALBUMIN 4.3 g/dL (3.2-5.5); ALKALINE PHOSPHATASE 83 IU/L (42-121); ALT ALANINE AMINOTRANSFERASE 18 IU/L (10-60); AST ASPARTATE AMINOTRANSFERASE 18 IU/L (10-42); BILIRUBIN,DIRECT < 0.10 mg/dL (0.03-0.18); BILIRUBIN,TOTAL 0.3 mg/dL (0.2-1.0); TOTAL PROTEIN 6.5 g/dL (6.4-8.9)
== END 2023-08-02 13:38 | disposition home or self-care (01) ==
LOC: LAB.S 13:37
PROVIDERS: ATTEND Physician Assistant Medical
DX: B35.1 Tinea unguium (principal)
CPT/HCPCS: 36415; 80076

== ENCOUNTER 2023-09-04 12:03 | Outpatient (CLI) | payer MEDICARE | END 2023-09-04 12:04 | disposition EMS.NT | LOC: EMS 12:03 | DX: Z03.89 Encounter for observation for other suspected diseases and conditions ruled out (principal) ==

== ENCOUNTER 2023-10-08 14:12 | Outpatient (CLI) | payer MEDICARE ==
[2023-10-08 20:19] LABS: ALBUMIN 4.1 g/dL (3.2-5.5); ALKALINE PHOSPHATASE 78 IU/L (42-121); ALT ALANINE AMINOTRANSFERASE 18 IU/L (10-60); AST ASPARTATE AMINOTRANSFERASE 19 IU/L (10-42); BILIRUBIN,DIRECT < 0.10 mg/dL (0.03-0.18); BILIRUBIN,TOTAL 0.3 mg/dL (0.2-1.0); TOTAL PROTEIN 6.7 g/dL (6.4-8.9)
== END 2023-10-08 14:13 | disposition home or self-care (01) ==
LOC: LAB.S 14:12
PROVIDERS: ATTEND Physician Assistant Medical
DX: B35.1 Tinea unguium (principal)
CPT/HCPCS: 36415; 80076

== ENCOUNTER 2023-12-24 14:37 | Outpatient (CLI) | payer MEDICARE ==
[2023-12-24 19:55] LABS: ALKALINE PHOSPHATASE 80 IU/L (42-121); ALT ALANINE AMINOTRANSFERASE 15 IU/L (10-60); AST ASPARTATE AMINOTRANSFERASE 14 IU/L (10-42); BILIRUBIN,DIRECT < 0.10 mg/dL (0.03-0.18); BILIRUBIN,TOTAL 0.3 mg/dL (0.2-1.0); TOTAL PROTEIN 6.5 g/dL (6.4-8.9)
== END 2023-12-24 14:38 | disposition home or self-care (01) ==
LOC: LAB.S 14:37
PROVIDERS: ATTEND Physician Assistant Medical
DX: B35.1 Tinea unguium (principal)
CPT/HCPCS: 36415; 80076

== ENCOUNTER 2024-02-07 14:03 | Outpatient (CLI) | payer MEDICARE ==
[2024-02-07 19:57] LABS: ALBUMIN 4.2 g/dL (3.2-5.5)
[2024-02-07 20:03] LABS: ALKALINE PHOSPHATASE 76 IU/L (42-121); ALT ALANINE AMINOTRANSFERASE 18 IU/L (10-60); AST ASPARTATE AMINOTRANSFERASE 15 IU/L (10-42); BILIRUBIN,DIRECT < 0.10 mg/dL (0.03-0.18); BILIRUBIN,TOTAL 0.3 mg/dL (0.2-1.0); TOTAL PROTEIN 6.2 g/dL (6.4-8.9)
== END 2024-02-07 14:04 | disposition home or self-care (01) ==
LOC: LAB.S 14:03
PROVIDERS: ATTEND Physician Assistant Medical
DX: B35.1 Tinea unguium (principal)
CPT/HCPCS: 36415; 80076

== ENCOUNTER 2024-03-04 14:14 | Outpatient (CLI) | payer MEDICARE ==
[2024-03-04 20:05] LABS: BASOPHILS # (AUTO) 0.1 10^3/uL (0.0-0.1); BASOPHILS % (AUTO) 0.5 %; EOSINOPHILS % (AUTO) 0.1 %; HCT - HEMATOCRIT 40.4 % (37.0-47.0); HGB - HEMOGLOBIN 12.5 g/dL (12.0-16.0); LYMPHOCYTES # (AUTO) 1.6 10^3/uL (1.5-3.5); LYMPHOCYTES % (AUTO) 16.2 %; MEAN CORPUSCULAR HGB CONC 30.9 g/dL (32.0-36.0); MEAN CORPUSCULAR VOLUME 96.9 fL (81.0-99.0); MEAN PLATELET VOLUME 9.8 fL (7.9-10.8); MONOCYTES # (AUTO) 0.8 10^3/uL (0.0-1.0); MONOCYTES % (AUTO) 8.2 %; NEUTROPHILS # (AUTO) 7.3 10^3/uL (1.5-6.6); NEUTROPHILS % (AUTO) 74.6 %; PLT - PLATELET COUNT 339 10^3/uL (130-450); RED BLOOD COUNT 4.17 10^6/uL (4.20-5.40); WHITE BLOOD COUNT 9.8 x10^3/uL (4.8-10.8)
[2024-03-04 20:26] LABS: ALBUMIN 4.2 g/dL (3.2-5.5); ALBUMIN/GLOBULIN RATIO 1.9 (1.0-2.2); ALKALINE PHOSPHATASE 83 IU/L (42-121); ALT ALANINE AMINOTRANSFERASE 16 IU/L (10-60); AST ASPARTATE AMINOTRANSFERASE 15 IU/L (10-42); BILIRUBIN,DIRECT < 0.10 mg/dL (0.03-0.18); BILIRUBIN,TOTAL 0.3 mg/dL (0.2-1.0); BUN - BLOOD UREA NITROGEN 27 mg/dL (6-20); CALCIUM 10.2 mg/dL (8.5-10.3); CARBON DIOXIDE - CO2 27 mmol/L (21-32); CHLORIDE 107 mmol/L (101-111); CHOL/HDL RATIO 4.8 (<4.4); CHOLESTEROL 266 mg/dL; CREATININE 1.4 mg/dL (0.6-1.3); GFR - MDRD 38 (>89); GLUCOSE 109 mg/dL (74-104); HDL CHOLESTEROL 56 mg/dL; POTASSIUM 3.8 mmol/L (3.5-4.5); SODIUM 140 mmol/L (135-145); TOTAL PROTEIN 6.4 g/dL (6.4-8.9); TRIGLYCERIDES 495 mg/dL (48-352)
[2024-03-04 20:34] LABS: THYROID STIMULATING HORMONE 2.92 uIU/mL (0.34-5.60)
[2024-03-04 20:58] LABS: LDL CHOLESTEROL,DIRECT 157 mg/dL (75-193); LDLD/HDL RATIO 2.8 (<4.4)
== END 2024-03-04 14:15 | disposition home or self-care (01) ==
LOC: LAB.S 14:14
PROVIDERS: ATTEND Physician Assistant Medical
DX: B35.1 Tinea unguium (principal); Z13.228 Encounter for screening for other metabolic disorders; Z13.220 Encounter for screening for lipoid disorders; Z13.29 Encounter for screening for other suspected endocrine disorder; Z13.0 Encounter for screening for diseases of the blood and blood-forming organs and certain disorders involving the immune mechanism
CPT/HCPCS: 36415; 80053; 80061; 80076; 82248; 83721; 84443; 85025

== ENCOUNTER 2024-05-08 13:39 | Outpatient (CLI) | payer MEDICARE ==
--- NOTE | 2024-05-08 21:04 | Ultrasound Report ---
PROCEDURE: Renal (Retroperitoneal) INDICATIONS: CHRONIC KIDNEY DISEASE STAGE 3 TECHNIQUE: Real-time scanning was performed of the retroperitoneal organs, with image documentation. COMPARISON: None. FINDINGS: Kidneys: Kidneys are borderline atrophic. Right kidney measures 9.3 cm long; left kidney measures 8 .6 cm long. Right renal cortical thickness is 0.9 cm; left renal cortical thickness is 1.0 cm. No s olid masses, hydronephrosis, or nephrolithiasis. Bladder: Pre-void bladder volume is 23 mL. Patient unable to void at the time of the exam. Pre-void images demonstrate no intraluminal masses or stones dependent underdistention. On pre-void images, b ilateral ureteral jets are noted with color Doppler interrogation. (Of note, ureteral jets may not b e detectable in up to 25% of cases due to insufficient differences in specific gravity between ureter al and bladder urine). Miscellaneous: No free abdominal fluid. IMPRESSION: No hydronephrosis or nephrolithiasis. Reviewed by: Elliott Escobar MD on 05/08/2024 9:03 PM PDT Approved by: Elliott Escobar MD on 05/08/2024 9:03 PM PDT Station ID: [id number]
== END 2024-05-08 13:40 | disposition home or self-care (01) ==
LOC: DI 13:39
PROVIDERS: ATTEND Registered Nurse
DX: N18.30 Chronic kidney disease, stage 3 unspecified (principal)

== ENCOUNTER 2024-05-21 14:14 | Outpatient (CLI) | payer MEDICARE ==
--- NOTE | 2024-05-22 09:34 | Mammography Report ---
BILATERAL DIGITAL SCREENING MAMMOGRAM 3D/2D: 05/21/2024 CLINICAL: Routine screening. Family history of breast cancer. Comparison is made to exams dated: 05/16/2023 mammogram, 04/24/2022 mammogram, 05/02/2022 mammogram, and 04/19/2021 mammogram - [facility]. Both breasts are heterogeneously dense, which may obscure small masses (category c / 51-75% glandular tissue). No significant masses, calcifications, or other findings are seen in either breast. There has been no significant interval change. IMPRESSION: NEGATIVE There is no mammographic evidence of malignancy. A 1 year screening mammogram is recommended. Based on the Tyrer Cuzick model (a risk assessment model) the patient's lifetime risk is 13.0% and he r 10 year risk is 6.4%. According to the ACR, ACS, and NCCN guidelines, an annual breast MRI exam amy ng with mammogram is recommended if the patient's lifetime risk is 20% or greater. This exam was interpreted at Station ID: [id number]. NOTE: For mammograms, a report in lay terms will be sent to the patient. Approximately 15% of breast malignancies will not be visualized mammographically. In the management of a palpable breast mass, a negative mammogram must not discourage biopsy of a clinically suspicious lesion. Electronically Signed By: Paco teran/aixa:05/22/2024 08:42:06 letter sent: No_Letter ACR BI-RADS Category 1: Negative 3341F PARENCHYMAL PATTERN: (D) - The breast(s) demonstrate(s) heterogeneously dense fibroglandular waylon huizar. BI-RADS CATEGORY: (1) - 1 RECOMMENDATION: (ANNUAL) - Recommend routine annual screening mammography. [id number] 1 year screening LATERALITY: (B)
== END 2024-05-21 14:15 | disposition home or self-care (01) ==
LOC: DI.S 14:14
DX: Z12.31 Encounter for screening mammogram for malignant neoplasm of breast (principal); R92.333 Mammographic heterogeneous density, bilateral breasts; Z80.3 Family history of malignant neoplasm of breast

== ENCOUNTER 2024-05-21 14:15 | Outpatient (CLI) | payer MEDICARE ==
[2024-05-21 20:42] LABS: ALBUMIN 4.1 g/dL (3.2-5.5); ALKALINE PHOSPHATASE 90 IU/L (42-121); ALT ALANINE AMINOTRANSFERASE 16 IU/L (10-60); AST ASPARTATE AMINOTRANSFERASE 15 IU/L (10-42); BILIRUBIN,DIRECT < 0.10 mg/dL (0.03-0.18); BILIRUBIN,TOTAL 0.3 mg/dL (0.2-1.0); TOTAL PROTEIN 6.5 g/dL (6.4-8.9)
[2024-05-21 20:43] LABS: ALBUMIN 4.1 g/dL (3.2-5.5); CALCIUM 9.7 mg/dL (8.5-10.3); CREATININE 1.4 mg/dL (0.6-1.3); POTASSIUM 3.9 mmol/L (3.5-4.5)
== END 2024-05-21 14:16 | disposition home or self-care (01) ==
LOC: LAB.S 14:15
PROVIDERS: ATTEND Registered Nurse
DX: B35.1 Tinea unguium (principal); N18.30 Chronic kidney disease, stage 3 unspecified
CPT/HCPCS: 36415; 80069; 80076; 80306; 81001